=== PATIENT | male | born 1985 | race Caucasian/White ===

== ENCOUNTER 2018-02-20 08:48 | Day surgery (SDC) | payer BC ==
[2018-02-19 12:15] VITALS: BMI 33.6
[2018-02-20] MEDS ORDERED: Oxymetazoline HCl 0.05% ( 15 ML ) ONE ×2 (09:15→09:57)
[2018-02-20] MEDS ORDERED: Midazolam HCl 2 mg/2 ml Vial ONE (09:43)
[2018-02-20] MEDS ORDERED: Bacitracin Zinc Ointment 30 gm TUBE ONE (09:57)
[2018-02-20] MEDS ORDERED: Lidocaine 1% w/Epinephrine 1:200K 30 ML VIAL ONE (09:57)
[2018-02-20] MEDS ORDERED: Fentanyl 250 MCG/5 ML VIAL ONE (10:18)
[2018-02-20] MEDS ORDERED: HYDROcodone/Acetaminophen 5/325 mg Tablet ONE (12:29)
[2018-02-20] MEDS ORDERED: hydrALAZINE 20 MG/ML VIAL ONE (12:49)
--- NOTE | 2018-02-20 15:09 | OP ---
PREOPERATIVE DIAGNOSES: Deviated septum, obstructive hypertrophic inferior turbinates. POSTOPERATIVE DIAGNOSES: Deviated septum, obstructive hypertrophic inferior turbinates. PROCEDURES PERFORMED: 1. Septoplasty. 2. Bilateral submucosal resection of inferior turbinates. PROCEDURE IN DETAIL: After consent was obtained, the patient was identified, brought to the operatin g room, and placed on the operating room table in the supine position. Consent was obtained, notifyi ng the patient of the possibility of additional infections, bleeding, brain injury, and eye/orbital i njury. The patient was placed on the operating room table, and general endotracheal anesthesia and intravenous access was obtained. The patient was then positioned, prepped and draped for endoscopic sinus surgery. Nasal preparation included trimming nasal vestibular hairs and spraying in topical Af rin. We then placed Afrin topical solution on nasal pledgets and strategically located them intranas ally. The perinasal mucosa was injected with 1% lidocaine with 1:100,000 epinephrine in the submucop erichondrial plane of the septum, lateral nasal wall, and anterior to the uncinate. The patient was then prepped and draped in a sterile fashion and positioned for endoscopic sinus surgery. After local anesthesia was infiltrated into the submucoperichondrial plane, a standard Branson incisi on was made with a #15 blade down to the level of the septal cartilage. The caudal elevator was used to elevate the mucoperichondrium from the underlying cartilage. We then proceeded beyond the bony c artilaginous junction and elevated the bony periosteum as well. Great attention was paid to the spur to prevent rent formation in the septal flap. A transcartilaginous incision was then made, while pre serving an adequate dorsal and caudal cartilaginous strut for tip support. The deformed cartilage wa s removed and disarticulated from the bony cartilaginous junction and maxillary crest. This was plac ed in saline and would later be crushed and returned to the mucoperichondrial envelope. We then elev ated the contralateral periosteum from the bony cartilaginous region and removed the deformed portion s of the bone and bony spurs. The cartilage was then crushed and placed back into the mucoperichondr ial envelope and the mucosa was re-approximated with a quilting stitch composed of rapidly absorbent gut suture. The Branson incision was also closed with interrupted gut suture. At the completion of the case, Bruce splints were placed and suture secured to the caudal septum. The inferior turbinates were visualized with a 0-degree endoscope and outfractured with a Marilee eleva tor. The inferior medial aspect was cauterized with the electrocautery. Hemostasis was obtained . After adequate airway was established, we turned our attention to the contralateral side and used a s imilar procedure. Again, a Marilee elevator was used to outfracture inferior turbinates under endoscop ic visualization. With a suction cautery, the free inferior medial aspect was cauterized under direc t visualization along the length of the inferior turbinate. There were no complications. The patient tolerated the procedure well and was discharged to the [facility] very room in stable condition prior to return to the preoperative Day Stay with ultimate discharge ho hi. Prescriptions for pain medication and antibiotics were provided. The patient received intramusc ular Depo-Medrol during the case.
[2018-02-20] MEDS ORDERED: Glycopyrrolate 0.2 MG/ML 5 ML SYRINGE ONE (15:29)
[2018-02-20] MEDS ORDERED: Lidocaine 1% PF 5 ML VIAL ONE (15:29)
[2018-02-20] MEDS ORDERED: PROPOFOL 200 MG/20 ML VIAL ONE (15:29)
[2018-02-20] MEDS ORDERED: Ondansetron HCl/PF 4 MG/2 ML Vial ONE (15:29)
[2018-02-20] MEDS ORDERED: Dexamethasone 20 MG/5 ML VIAL ONE (15:29)
== END 2018-02-20 13:27 | disposition home or self-care (01) ==
LOC: SDC 08:48
PROVIDERS: ATTEND Specialist
PROC: 09SL8ZZ Reposition Nasal Turbinate, Via Natural or Artificial Opening Endoscopic (ICD-10-PCS; principal; 2018-02-20)
PROC: 09RM07Z Replacement of Nasal Septum with Autologous Tissue Substitute, Open Approach (ICD-10-PCS; principal; 2018-02-20)
DX: J34.2 Deviated nasal septum (principal); J34.3 Hypertrophy of nasal turbinates; J45.909 Unspecified asthma, uncomplicated; Z87.891 Personal history of nicotine dependence; Z79.51 Long term (current) use of inhaled steroids
CPT/HCPCS: 96374; J0360; J1100; J2001; J2250; J2405; J2704; J3010